=== PATIENT | female | born 1995 | race Caucasian/White ===

== ENCOUNTER 2018-08-02 13:37 | Emergency (ER) | payer OTHER ==
[2018-08-02 13:46] VITALS: BP 131/86; PULSE 82; TEMP 98.3; BMI 25.6
[2018-08-02 14:21] LABS: URINE APPEARANCE Clear; URINE BILIRUBIN Negative (NEGATIVE); URINE COLOR Yellow; URINE GLUCOSE (UA) Negative (NEGATIVE); URINE KETONE Negative (NEGATIVE); URINE LEUK ESTERASE Negative (NEGATIVE); URINE NITRITE Negative (NEGATIVE); URINE PROTEIN Negative (NEGATIVE); URINE UROBILINOGEN 0.2 (0.2-1.0)
[2018-08-02 14:28] LABS: HCG,QUALITATIVE URINE Negative
[2018-08-02] MEDS ORDERED: KETOROLAC TROMETHAMINE 30 MG/1 ML VIAL IM ONE (14:30)
--- NOTE | 2018-08-02 14:46 | PDOC ---
History of Present Illness - General Chief Complaint: Injury Stated Complaint: LEFT SIDE RIB PAIN Past History - Past Medical History Allergies/Adverse Reactions: Allergies Allergy/AdvReac Type Severity Reaction Status Date / Time No Known Allergies Allergy Verified 08/02/18 13:38 Home Medications: Ambulatory Orders Ibuprofen [Motrin -] 600 mg PO TID #90 tablet 08/02/18 COPD: No - Suicide/Smoking/Psychosocial Hx Smoking History: Never smoked Have you smoked in the past 12 months: No Information on smoking cessation initiated: No Hx Alcohol Use: No Drug/Substance Use Hx: No *Physical Exam - Vital Signs Last Vital Signs Temp Pulse Resp BP Pulse Ox 98.3 F 82 20 131/86 100 08/02/18 13:38 08/02/18 13:38 08/02/18 13:38 08/02/18 13:38 08/02/18 13:38 Moderate Sedation - Procedure Monitoring Vital Signs: Procedure Monitoring Vital Signs Temperature 98.3 F 08/02/18 13:38 Pulse Rate 82 08/02/18 13:38 Respiratory Rate 20 08/02/18 13:38 Blood Pressure 131/86 08/02/18 13:38 O2 Sat by Pulse Oximetry (%) 100 08/02/18 13:38 ED Treatment Course - ADDITIONAL ORDERS Additional order review: Laboratory Results 08/02/18 14:15 Urine Color Yellow Urine Appearance Clear Urine pH 7.0 Ur Specific Crum 1.015 Urine Protein Negative Urine Glucose (UA) Negative Urine Ketones Negative Urine Blood Negative Urine Nitrite Negative Urine Bilirubin Negative Urine Urobilinogen 0.2 Ur Leukocyte Esterase Negative Urine HCG, Qual Negative - RADIOLOGY Radiology Studies Ordered: Category Date Time Status CHEST PA & LAT [RAD] Stat Radiology 08/02/18 14:14 Ordered KIDNEY / RENAL US [US] Stat Ultrasound 08/02/18 14:13 Ordered Medical Decision Making - Medical Decision Making 08/02/18 14:44 23 yo F with ho recent viral cold cough nasal congestion seen at urgent care 2 days ago and started on amoxicillin for uvulitis, here with c/o anterior rib and lower flank pain. worse wtih movement, touching and deep breathing and cough. no f/c no urinar complaint.s no h/o pe or dvt. no leg swelling. no travel. on exam pt with left lower anterior rib ttp, left flank ttp. reproducible pain. likley muskuloskeletal. differenetial includes pna, rib fx. pyelo renal colic, uti, no risk factors for PE PERT negative. will obtain cxr us renal ua ucg pain controla nd reassess. likely dc home. 08/02/18 15:31 cxr negative. ua negative for blood. renal us negative. pt with reproducible pain , will dc with msk pain, told to roman motrin every 8 hrs as needed for pain continue amox for uvulitis and return for any problms or concerns *DC/Admit/Observation/Transfer Diagnosis at time of Disposition: Viral URI with cough, Muscle strain of anterior chest wall - Discharge Dispostion Disposition: HOME Decision to Admit order: No - Prescriptions Prescriptions: Ibuprofen [Motrin -] 600 mg PO TID #90 tablet - Referrals - Patient Instructions Printed Discharge Instructions: Common Cold, Muscle Strain Additional Instructions: you can take motrin 600 mg every 8 hrs only as needed for pain. take with food. return for any fever, difficulty breathing or any concerns. drink plenty of fluids, and follow up with your regular doctor Dr Gan. call to schedule to be seen within one week. your urine was negative for infection. your renal ultrasound is normal kidneys no problems. and your chest xray is negative for any infection. - Post Discharge Activity
[2018-08-02] MEDS ORDERED: KETOROLAC TROMETHAMINE 30 MG/1 ML VIAL ONE (14:49)
== END 2018-08-02 15:48 | disposition home or self-care (01) ==
LOC: FER 13:37
PROC: 3E0233Z Introduction of Anti-inflammatory into Muscle, Percutaneous Approach (ICD-10-PCS; principal; 2018-08-02)
DX: J06.9 Acute upper respiratory infection, unspecified (principal); M79.10 Myalgia, unspecified site
CPT/HCPCS: 71046-TC-FY; 76775-TC; 81003; 84703; 96372; 99282-25

== ENCOUNTER 2020-03-23 10:00 | Day surgery (SDC) | payer OTHER ==
[2020-03-22 09:35] VITALS: BMI 29.4
[2020-03-23] MEDS ORDERED: LIDOCAINE HCL/PF 2% SDV 5ML VIAL ONE (10:41)
[2020-03-23] MEDS ORDERED: PROPOFOL 20 ML ONE ×2 (10:41)
[2020-03-23 11:23] VITALS: TEMP 98.2
[2020-03-23 11:49] VITALS: BP 112/58; PULSE 58
--- NOTE | 2020-03-27 16:12 | PATH ---
Surgical Pathology Report Patient Name: JASSON BERRIOS [facility]. Rec. #: [id number] /Age/Gender: 1995 (Age: 24) / F Account: [id number] Location: [facility] Taken: 03/23/2020 Received: 03/23/2020 Reported: 03/27/2020 Physicians: Jimi Pichardo M.D. Specimen(s) Received A: TERMINAL ILEUM B: CECUM C: TRANSVERSE COLON D: RECTUM Clinical History Blood in stool Postoperative diagnosis: Ulcerative colitis Final Diagnosis A. TERMINAL ILEUM, BIOPSY: SMALL INTESTINAL MUCOSA WITH NO SIGNIFICANT PATHOLOGIC CHANGE. B. CECUM, BIOPSY: COLONIC MUCOSA WITH MODERATE ACTIVE CHRONIC INFLAMMATION OF LAMINA PROPRIA, ACUTE CRYPTITIS, REACTIVE LYMPHOID AGGREGATE, AND FOCAL CRYPTAL DISTORTION. SEE COMMENT. C. TRANSVERSE COLON, BIOPSY: COLONIC MUCOSA WITH MODERATE ACTIVE CHRONIC INFLAMMATION OF LAMINA PROPRIA, ACUTE CRYPTITIS, REACTIVE LYMPHOID AGGREGATE, AND FOCAL CRYPTAL DISTORTION. SEE COMMENT. D. RECTUM, BIOPSY: COLONIC MUCOSA WITH MODERATE ACTIVE CHRONIC INFLAMMATION OF LAMINA PROPRIA, ACUTE CRYPTITIS, CRYPT ABSCESS, REACTIVE LYMPHOID AGGREGATE, AND FOCAL CRYPTAL DISTORTION. SEE COMMENT. Comment: There is no dysplasia, granuloma, parasite or viral inclusions in the specimens. The above histologic features are consistent with active chronic crypt destructive colitis pattern. This pattern, while characteristic of chronic idiopathic inflammatory bowel disease, is not specific. This may also be seen in chronic enteric infections, drug reactions, and parasitic infections. Please correlate clinically. Electronically Signed Nely Tyler M.D. Gross Description A. Received in formalin, labeled "biopsy terminal ileum" is a muir, irregular portion of soft tissue measuring 0.5 cm. in greatest dimension. The specimen is submitted in toto in one cassette. B. Received in formalin, labeled "biopsy cecum" is a muir, irregular portion of soft tissue measuring 0.3 cm. in greatest dimension. The specimen is submitted in toto in one cassette. C. Received in formalin, labeled "biopsy transverse colon" is a muir, irregular portion of soft tissue measuring 0.4 cm. in greatest dimension. The specimen is submitted in toto in one cassette. D. Received in formalin, labeled "biopsy rectum" is a muir, irregular portion of soft tissue measuring 0.4 cm. in greatest dimension. The specimen is submitted in toto in one cassette. DL/03/26/2020 [facility]03/26/2020
== END 2020-03-23 11:51 | disposition home or self-care (01) ==
LOC: FASU-ENDO 10:00
PROVIDERS: ATTEND Internal Medicine Gastroenterology
PROC: 0DBL8ZX Excision of Transverse Colon, Via Natural or Artificial Opening Endoscopic, Diagnostic (ICD-10-PCS; 2020-03-23)
PROC: 0DBP8ZX Excision of Rectum, Via Natural or Artificial Opening Endoscopic, Diagnostic (ICD-10-PCS; 2020-03-23)
PROC: 0DBB8ZX Excision of Ileum, Via Natural or Artificial Opening Endoscopic, Diagnostic (ICD-10-PCS; 2020-03-23)
PROC: 0DBH8ZX Excision of Cecum, Via Natural or Artificial Opening Endoscopic, Diagnostic (ICD-10-PCS; principal; 2020-03-23 10:50)
DX: K62.5 Hemorrhage of anus and rectum (principal); K51.00 Ulcerative (chronic) pancolitis without complications; K63.89 Other specified diseases of intestine; R10.9 Unspecified abdominal pain
CPT/HCPCS: 84703; 88305-TC

== ENCOUNTER 2020-04-28 12:38 | Emergency (ER) | payer OTHER ==
--- OUTSIDE RECORDS SUMMARY | 2020-04-28 12:51 | XMS ---
:1995 Author Organization [facility] Support Name Relationship Address Phone UE Unavailable Unavailable Unavailable MISTY BERRIOS MOTHER [address] [place] [address] Re-disclosure Warning The records that you are about to access may contain information from federally- assisted alcohol or drug abuse programs. If such information is present, then the following federally mandated warning applies: This information has been disclosed to you from records protected by federal confidentiality rules (42 CFR part 2). The federal rules prohibit you from making any further disclosure of this information unless further disclosure is expressly permitted by the written consent of the person to whom it pertains or as otherwise permitted by 42 CFR part 2. A general authorization for the release of medical or other information is NOT sufficient for this purpose. The Federal rules restrict any use of the information to criminally investigate or prosecute any alcohol or drug abuse patient.The records that you are about to access may contain highly sensitive health information, the redisclosure of which is protected by Article 27-F of the [facility] Public Health law. If you continue you may haveaccess to information: Regarding HIV / AIDS; Provided by facilities licensed or operated by the [facility] Office of Mental Health; or Provided by the [facility] Office for People With Developmental Disabilities. If such information is present, then the following [facility] mandated warning applies: This information has been disclosed to you from confidential records which are protected by state law. State law prohibits you from making any further disclosure of this information without the specific written consent of the person to whom it pertains, or as otherwise permitted by law. Any unauthorized further disclosure in violation of state law may result in a fine or senior care sentence or both. A general authorization for the release of medical or other information is NOT sufficient authorization for further disclosure. Insurance Providers Payer name Policy type Policy ID Covered Covered constitution party's Policy P boris / Coverage constitution party ID relationship to [employer] Inf ormation type loredo MVP EXCHANGE [id number] SP [id number] PLAN MVP EXCHANGE [id number] SP [id number] PLAN Results ID Date Data Source [id number] 03/20/2020 10:50:00 AM EDT [facility] Name Value Range Interpretation Description Data Sup porting Code Source(s) Document(s ) SARS [facility] coronavirus 2 RNA This lab was ordered by FRANC meyer [facility] and reported by [facility]. Procedure
[2020-04-28 12:55] VITALS: TEMP 99; BMI 29.2
--- NOTE | 2020-04-28 13:06 | PDOC ---
Attending Attestation - Resident Resident Name: Aidan Dalton - ED Attending Attestation I have performed the following: I have examined & evaluated the patient, The case was reviewed & discussed with the resident, I agree w/resident's findings & plan, Exceptions are as noted - HPI HPI: 04/28/20 13:03 24-year-old female recently diagnosis of ulcerative colitis here today complaining of chest pain. Patient has had pleuritic-like substernal chest pain for the last few days denies feeling short of breath no moderating factors except it is worse with deep breathing she does not feel short of breath however no leg swelling no history of PE or DVT does believe that she may have had COVID had some sinus congestion and headaches in October at that time had a negative cold with swab however later had positive antibodies no other complaints chest pain is not positional she was seen yesterday urgent care who recommended doing a chest x-ray which she refused at that time is here today for persistent symptoms - Physicial Exam PE: 04/28/20 13:05 Awake alert no acute distress lungs are clear bilaterally heart is regular 30 murmurs rubs or gallops abdomen is soft and nontender extremities are warm well perfused there is no appreciated calf tenderness or leg edema patient does have some reproducible anterior chest wall tenderness to palpation no step-off no crepitus no ecchymosis noted - Medical Decision Making 04/28/20 13:05 24-year-old female recent diagnosis of ulcerative colitis here today with chest pain does have a questionable history of clubbing with positive antibodies differential includes costochondritis, pericarditis pneumonia or other infection ACS extremely unlikely due to her young age however myocarditis is also considered PE is another factor as the patient does have autoimmune disorder and has a recent history of COVID possibly plan chest x-ray to rule out any infection or pneumothorax EKG labs including a troponin and coags patient will likely require a CT angios to rule out PE Focused bedside echo to rule out pericardial effusion or any change in contractility Heart Score/ECG Review #1 General ECG Interpretation: Sinus Rhythm, Normal Rate, Normal Intervals, No acute ischemic changes Compared to previous ECG there are: Other (TWI III only.) Discharge - Discharge Information Problems reviewed: Yes Clinical Impression/Diagnosis: Chest wall pain Condition: Improved Disposition: HOME - Admission No - Follow up/Referral Referrals: Thor Gan [Primary Care Provider] - - Patient Discharge Instructions Patient Printed Discharge Instructions: DI for Atypical Chest Pain, Costochondritis Additional Instructions: Your evaluated today for chest pain. Your EKG is normal and your labs including a basic blood count electrolytes renal function and heart enzyme are all normal and unremarkable. Your chest x-ray is negative for any acute pathology. We performed a CT chest to rule out any underlying illness or blood clot which was normal or negative. We also performed a bedside echo which showed no effusion around your heart and good contractility are good movement of your heart overall. You likely have inflammation in your chest wall will be called costochondritis. Please follow-up with your primary doctor. For your pain you may take Motrin 400 mg every 8 hours as needed for pain you can also take Tylenol 500 mg every 6 hours as needed follow-up with your primary care doctor call to schedule appointment to be seen within 1 to 2 weeks. For any shortness of breath worsening symptoms or any concerns please return for repeat evaluation - Post Discharge Activity
[2020-04-28 13:30] LABS: HEMOGLOBIN 14.1 GM/dl (10.7-15.3); WHITE BLOOD COUNT 12.4 K/mm3 (4.0-10.8)
[2020-04-28 13:31] LABS: BASO % 1.1 % (0-2.0); EOS % 1.3 % (0-4.5); HEMATOCRIT 41.2 % (32.4-45.2); LYMPH % 5.6 % (8-40); MCH 29.9 pg (25.7-33.7); MCHC 34.1 g/dl (32.0-36.0); MEAN CELL VOLUME 87.7 fl (80-96); MEAN PLT VOLUME 7.8 fl (7.5-11.1); MONO % 7.3 % (3.8-10.2); NEUT % 84.7 % (42.8-82.8); PLATELET COUNT 375 K/MM3 (134-434); RDW 12.3 % (11.6-15.6)
--- NOTE | 2020-04-28 13:38 | PDOC ---
History of Present Illness - General Chief Complaint: Chest Pain Stated Complaint: CHEST PAIN Time Seen by Provider: 04/28/20 12:40 - History of Present Illness Initial Comments: 24-year-old female recently diagnosis of ulcerative colitis here today complaining of chest pain. Patient has had pleuritic-like substernal chest pain for the last few days . She denied SOB, leg swelling, no prior hx of PE, or DVT. Patient has tested negative for COVID but had some mild sinusitis , but she admitted to have positive antibody. Patient went [place] urgent care in the city. There they wanted her to do Xray , but she refused. She had an EKG done showed sinus rhythm. PMHX: as in HPI PSHX: see below Meds: mesalamine. Allergies: none Tob:none Etoh: none Rec drugs:none PCP: [facility]: [facility] GENERAL/CONSTITUTIONAL: No fever or chills. No weakness. HEAD, EYES, EARS, NOSE AND THROAT: No change in vision. No ear pain or discharge . No sore throat. CARDIOVASCULAR: No chest pain or shortness of breath RESPIRATORY: No cough, wheezing, or hemoptysis. GASTROINTESTINAL: No nausea, vomiting, diarrhea or constipation. GENITOURINARY: No dysuria, frequency, or change in urination. MUSCULOSKELETAL: No joint or muscle swelling or pain. No neck or back pain. SKIN: No rash NEUROLOGIC: No headache, vertigo, loss of consciousness, or change in strength/sensation. ENDOCRINE: No increased thirst. No abnormal weight change HEMATOLOGIC/LYMPHATIC: No anemia, easy bleeding, or history of blood clots. ALLERGIC/IMMUNOLOGIC: No hives or skin allergy. PE GENERAL: Awake, alert, and fully oriented, in no acute distress HEAD: No signs of trauma, normocephalic, atraumatic EYES: PERRLA, EOMI, sclera anicteric, conjunctiva clear ENT: Auricles normal inspection, hearing grossly normal, nares patent, oropharynx clear without exudates. Moist mucosa NECK: Normal ROM, supple, no lymphadenopathy, JVD, or masses LUNGS: No distress, speaks full sentences, clear to auscultation bilaterally HEART: Regular rate and rhythm, normal S1 and S2, no murmurs, rubs or gallops, peripheral pulses normal and equal bilaterally. ABDOMEN: Soft, nontender, normoactive bowel sounds. No guarding, no rebound. No masses EXTREMITIES : Normal inspection, Normal range of motion, no edema. No clubbing or cyanosis. reproducible tenderness upon palpation on the costosternum area. NEUROLOGICAL: Cranial nerves II through XII grossly intact. Normal speech, norm al gait, no focal sensorimotor deficits SKIN: Warm, Dry, normal turgor, no rashes or lesions noted 04/28/20 16:13 Past History - Medical History Allergies/Adverse Reactions: Allergies Allergy/AdvReac Type Severity Reaction Status Date / Time No Known Allergies Allergy Verified 05/11/20 17:16 Home Medications: Ambulatory Orders Mesalamine [Asacol Hd -] 0 mg PO DAILY 04/28/20 Anemia: No Asthma: No Cancer: No Cardiac Disorders: No CVA: No COPD: No CHF: No Dementia: No Diabetes: No GI Disorders: Yes (ulcerative colitis) Disorders: No HTN: No Hypercholesterolemia: No Liver Disease: No Seizures: No Thyroid Disease: No - Surgical History Abdominal Surgery: No Appendectomy: No Cardiac Surgery: No Cholecystectomy: No Lung Surgery: No Neurologic Surgery: No Orthopedic Surgery: No - Reproductive History Is Patient Now?: No - Psycho-Social/Smoking History Smoking History: Current some day smoker Have you smoked in the past 12 months: Yes Number of Cigarettes Smoked Daily: 0 Information on smoking cessation initiated: Yes - Substance Abuse Hx (Audit-C & DAST Scrn) How often the patient has a drink containing alcohol: Monthly or less Score: In Men: 4 or > Positive; In Women: 3 or > Positive: 1 Screen Result (Pos requires Nsg. Audit-10AR): Negative In the last yr the pt used illegal drug/Rx for NonMed reason: No Score: Yes response is considered Positive: 0 Screen Result (Positive result requires Nsg. DAST-10): Negative *Physical Exam - Vital Signs Last Vital Signs Temp Pulse Resp BP Pulse Ox 99 F 94 H 18 136/93 99 04/28/20 12:38 04/28/20 12:38 04/28/20 12:38 04/28/20 12:38 04/28/20 12:38 ED Treatment Course - LABORATORY CBC & Chemistry Diagram: 04/28/20 13:00 04/28/20 13:00 Medical Decision Making - Medical Decision Making 04/28/20 16:14 24 F with UC presented to the ED with 2 days of worsening pleuretic chest pain. dx: ACS, PE, pericarditis, costochonritis. Plan to obtain: lab work, chest xray, CTA r/o PE, POCUS cardio, test. Med: tylenol, [place]. Result: test is Negative. Imaging: negative for pleural effusion, PE D/c with OTC pain control, most likely costochondritis. Discharge - Discharge Information Problems reviewed: Yes Clinical Impression/Diagnosis: Chest wall pain Condition: Improved Disposition: HOME - Follow up/Referral Referrals: Thor Gan [Primary Care Provider] - - Patient Discharge Instructions Patient Printed Discharge Instructions: Costochondritis, DI for Atypical Chest Pain Additional Instructions: Your evaluated today for chest pain. Your EKG is normal and your labs including a basic blood count electrolytes renal function and heart enzyme are all normal and unremarkable. Your chest x-ray is negative for any acute pathology. We performed a CT chest to rule out any underlying illness or blood clot which was normal or negative. We also performed a bedside echo which showed no effusion around your heart and good contractility are good movement of your heart overall. You likely have inflammation in your chest wall will be called costochondritis. Please follow-up with your primary doctor. For your pain you may take Motrin 400 mg every 8 hours as needed for pain you can also take Tylenol 500 mg every 6 hours as needed follow-up with your primary care doctor call to schedule appointment to be seen within 1 to 2 weeks. For any shortness of breath worsening symptoms or any concerns please return for repeat evaluation - Post Discharge Activity
[2020-04-28] MEDS ORDERED: KETOROLAC TROMETHAMINE 30 MG/1 ML VIAL IVPUSH ONE (13:40)
[2020-04-28 13:41] LABS: ALBUMIN 3.9 g/dl (3.4-5.0); BILIRUBIN,TOTAL 0.5 mg/dl (0.2-1); CALCIUM 8.9 mg/dl (8.5-10); CREATININE 0.8 mg/dl (0.55-1.3); POTASSIUM 3.8 mmol/L (3.5-5.1); TOT PROT 7.1 g/dl (6.4-8.2)
[2020-04-28] MEDS ORDERED: KETOROLAC TROMETHAMINE 30 MG/1 ML VIAL ONE (13:41)
[2020-04-28 13:43] LABS: ACTIVATED PTT 23.7 SECONDS (25.2-36.5); INR 1.18 (0.82-1.09); PROTHROMBIN TIME (PATIENT) 13.2 SEC (10.2-13.0)
[2020-04-28 14:37] VITALS: BP 114/74; PULSE 72
--- NOTE | 2020-04-28 16:13 | EKG ---
Test Reason : Blood Pressure : / mmHG Vent. Rate : 091 BPM Atrial Rate : 091 BPM P-R Int : 140 ms QRS Dur : 068 ms QT Int : 368 ms P-R-T Axes : -10 069 030 degrees QTc Int : 452 ms NORMAL SINUS RHYTHM NORMAL ECG NO PREVIOUS ECGS AVAILABLE Confirmed by MD Antwan, Adal ([id number]) on 04/28/2020 4:13:25 PM Referred By: CLAUDIO POP Confirmed By:Adal Moncada MD
== END 2020-04-28 14:50 | disposition home or self-care (01) ==
LOC: FER 12:38
PROC: 3E0333Z Introduction of Anti-inflammatory into Peripheral Vein, Percutaneous Approach (ICD-10-PCS; principal; 2020-04-28)
DX: R07.89 Other chest pain (principal)
CPT/HCPCS: 36415; 71046-TC-FY; 71275-TC; 80053; 84484; 84703; 85025; 85610; 85730; 93005; 93308; 99285-25; Q9967

== ENCOUNTER 2020-05-11 15:49 | Emergency (ER) | payer OTHER ==
--- OUTSIDE RECORDS SUMMARY | 2020-05-11 16:00 | XMS ---
:1995 Author Organization [facility] Support Name Relationship Address Phone UE Unavailable Unavailable Unavailable MISTY BERRIOS MOTHER [address] [place] [address] MISTY BERRIOS [address] [place] [place] [address] Re-disclosure Warning The records that you are [...] is protected by Article 27-F of the [facility] Public Health law. If you continue you may haveaccess to information: Regarding HIV / AIDS; Provided by facilities licensed or operated by the [facility] Office of Mental Health; or Provided by the [facility] Office for People With Developmental Disabilities. If such information is present, then the following [facility] mandated warning applies: This information has been [...] law may result in a fine or usp sentence or both. A general authorization for the release of medical or other information is NOT sufficient authorization for further disclosure. Insurance Providers Payer name Policy type Policy ID Covered Covered green party's Policy P boris / Coverage green party ID relationship to [employer] Inf ormation type loredo MVP EXCHANGE [id number] SP [id number] PLAN MVP EXCHANGE [id number] SP [id number] PLAN Results ID Date Data Source [id number] 04/27/2020 05:34:00 PM EDT [facility] Name Value Range Interpretation Code Description Data Leah rce(s) Supporting Document(s ) SARS-COV-2 [facility] QL JONEL+PROBE This lab was ordered by CAITY DEMARCO and reported by [facility]. ID Date Data Source [id number] 03/20/2020 10:50:00 AM EDT [facility] Name Value Range Interpretation Description Data Sup porting Code Source(s) Document(s ) SARS [facility] coronavirus 2 RNA This lab was ordered by FRANC MITCHELL and reported by [facility]. Procedure
--- NOTE | 2020-05-11 16:02 | PDOC ---
History of Present Illness - General Chief Complaint: Pain, Acute Stated Complaint: CHEST PAIN [id number] Time Seen by Provider: 05/11/20 16:00 History Source: Patient Exam Limitations: No Limitations - History of Present Illness Initial Comments: 05/11/20 16:00 24YOF with ulcerative colitis on mesalamine who p/w continued unchanged upper chest pain for the past 2-3 weeks, same as when she was seen here in the ED in April, at which time she was given Toradol IV push with great relief and also had chest CTA PE protocol which was negative. She notes the pain improved somewhat the first week after going home from the ED but over the past week it worsened again. She notes having taken Tylenol and Motrin as directed in her discharge instructions from last visit. Denies any chance of being . States the pain radiates to her neck on both sides and has a slight headache, cough, subjective fever, and swollen lymph nodes. Denies any measured fever, denies c/n/v/d/c, abdominal pain, dysuria, or hematuria, or new numbness, tingling, paralysis or weakness, etc. Past History - Medical History Allergies/Adverse Reactions: Allergies Allergy/AdvReac Type Severity Reaction Status Date / Time No Known Allergies Allergy Verified 05/11/20 17:16 Home Medications: Ambulatory Orders Mesalamine [Asacol Hd -] 0 mg PO DAILY 04/28/20 Anemia: No Asthma: No Cancer: No Cardiac Disorders: No CVA: No COPD: No CHF: No Dementia: No Diabetes: No GI Disorders: Yes (ulcerative colitis) Disorders: No HTN: No Hypercholesterolemia: No Liver Disease: No Seizures: No Thyroid Disease: No - Surgical History Abdominal Surgery: No Appendectomy: No Cardiac Surgery: No Cholecystectomy: No Lung Surgery: No Neurologic Surgery: No Orthopedic Surgery: No - Psycho-Social/Smoking History Smoking History: Current some day smoker Have you smoked in the past 12 months: Yes Number of Cigarettes Smoked Daily: 0 'Breaking Loose' booklet given: 04/28/20 Review of Systems - Review of Systems Able to Perform ROS?: Yes Comments:: 05/11/20 17:19 GEN: +subjective fever, malaise, no chills, or generalized weakness HEENT: no ear pain, eye pain, throat pain or swelling, nosebleed, vision change, or loose teeth SKIN: no cuts, abrasions, or bruises CV: +chest pain, no palpitations, or LOC RESP: no SOB, but pain worsens with deep breathing, +cough GI: no abdominal pain, nausea, vomiting, or black/bloody stool : no hematuria or flank pain/bruising MSK: no muscle weakness, muscle pain, joint pain, or joint swelling NECK/BACK: neck ache, no back pain, or trauma reported NEURO: headache, no seizure, numbness, tingling, focal weakness, or incontinence PSYCH: no suicidality, homicidality, or substance use *Physical Exam - Vital Signs Initial Vital Signs Temp Pulse Resp BP Pulse Ox 100.1 F H 122 H 20 98/55 L 100 05/11/20 15:49 05/11/20 15:49 05/11/20 15:49 05/11/20 15:49 05/11/20 15:49 - Physical Exam 05/11/20 17:00 GENERAL: well-appearing, A/Ox4, no distress, but a bit tearful after conversing for a few minutes, answers questions appropriately HEENT: PERRLA, EOMI, moist mucous membranes NECK/BACK: no midline ttp, no spinal step-off or deformity, no hematoma, full ROM, neck supple CARDIOVASCULAR: regular rate/rhythm, no MGR, strong peripheral pulses, capillary refill <2 seconds, extremities wwp, no edema CHEST WALL: no tenderness to compression LUNGS/RESPIRATORY: no respiratory distress, CTAB GI/ABDOMEN: symmetric [id number], normoactive BS, soft, no ttp, no midline pulsatile masses : no CVA tenderness MSK/EXTREMITIES: no muscle atrophy, no acute deformity SKIN: warm and dry, no pallor, no jaundice, no rash, no pathologic-appearing bruising, no skin breakdown, no cuts, no lesions NEUROLOGICAL: GCS 15, CN II-XII grossly intact, 5/5 strength proximally and distally, no facial droop, BUE sensory and motor intact and equal throughout Heart Score/ECG Review - History History: Slightly suspicious - Electrocardiogram EKG: Normal - Age Age: </= 45 - Risk Factors Based on the list above the patient has:: No risk factors known - Troponin Troponin: 1-3x normal limit - Score Heart Score - Total: 1 ED Treatment Course - LABORATORY CBC & Chemistry Diagram: 05/11/20 17:00 05/11/20 17:00 Medical Decision Making - Critical Care Time Total Critical Care Time (minutes): 35 Critical Care Statement: The care of this patient involved high complexity decision making to prevent further life threatening deterioration of the patient's condition and/or to evaluate & treat vital organ system(s) failure or risk of failure. - Medical Decision Making 05/11/20 17:00 24YOF p/w chest pain, ongoing for 2-3 weeks, unchanged. Initial Vital Signs Temp Pulse Resp BP Pulse Ox 100.1 F H 122 H 20 98/55 L 100 05/11/20 15:49 05/11/20 15:49 05/11/20 15:49 05/11/20 15:49 05/11/20 15:49 DDX IBNLT: possible pericarditis, less likely myocarditis without significant hypotension or h/o HF. Less likely but possible ACS. Unlikely PTX, PE, or PE given her recent negative CT PE protocol. Less likely any abdominal pathology as the patient has no tenderness or pain in the abdomen, no dysuria, hematuria, discharge, etc. Possible viral syndrome. Provider Orders Category Date Time Status ELECTROCARDIOGRAM [CARD] Stat Cardiology 05/11/20 16:02 Ordered EKG needed NOW Care 05/11/20 16:02 Completed Isolation Precautions As directed Care 05/11/20 17:50 Ordered CARDIAC PROFILE (ONLY [facility]) Stat Lab 05/11/20 17:00 Completed CBC WITH DIFFERENTIAL Stat Lab 05/11/20 17:00 Results COMP METABOLIC PANEL Stat Lab 05/11/20 17:00 Completed COVID-19 Stat Lab 05/11/20 17:50 Uncollected MAGNESIUM Stat Lab 05/11/20 17:00 Completed UA ([facility] ONLY) Stat Lab 05/11/20 17:23 Results URINE MICROSCOPIC (FRANC) Stat Lab 05/11/20 17:23 Results Urine [HCG,QUALITATIVE URINE] Stat Lab 05/11/20 17:23 Completed Ketorolac Injection [Toradol Injection -] Medication 05/11/20 17:39 Discontinued 30 mg .ROUTE .STK-MED ONE Ketorolac Injection [Toradol Injection -] Medication 05/11/20 17:13 Discontinued 30 mg IVPUSH ONCE ONE URINE CULTURE Stat Micro 05/11/20 17:23 Received CXRPORT [CHEST X-RAY PORTABLE*] [RAD] Stat Radiology 05/11/20 16:00 Completed Medications Discontinued Medications Generic Name Dose Route Start Last Admin Trade Name Kaitlin PRN Reason Stop Dose Admin Ketorolac Tromethamine 30 mg 05/11/20 17:13 05/11/20 17:49 Toradol Injection - IVPUSH 05/11/20 17:14 30 mg ONCE ONE Administration Ketorolac Tromethamine Confirm 05/11/20 17:39 Toradol Injection - Administered 05/11/20 17:40 Dose 30 mg .ROUTE .STK-MED ONE Lab Results WBC 9.0 K/mm3 (4.0-10.8) 05/11/20 17:00 RBC 4.49 M/mm3 (3.60-5.2) 05/11/20 17:00 Hgb 13.1 GM/dl (10.7-15.3) 05/11/20 17:00 Hct 38.8 % (32.4-45.2) 05/11/20 17:00 MCV 86.5 fl (80-96) 05/11/20 17:00 MCH 29.1 pg (25.7-33.7) 05/11/20 17:00 MCHC 33.7 g/dl (32.0-36.0) 05/11/20 17:00 RDW 12.2 % (11.6-15.6) 05/11/20 17:00 Plt Count 362 K/MM3 (134-434) 05/11/20 17:00 MPV 7.7 fl (7.5-11.1) 05/11/20 17:00 Absolute Neuts (auto) 8.3 K/mm3 05/11/20 17:00 Neutrophils % No Result Required. 05/11/20 17:00 Lymphocytes % No Result Required. 05/11/20 17:00 Sodium 135 mmol/L (136-145) L 05/11/20 17:00 Potassium 3.8 mmol/L (3.5-5.1) 05/11/20 17:00 Chloride 104 mmol/L (98-107) 05/11/20 17:00 Carbon Dioxide 21 mmol/L (21-32) 05/11/20 17:00 Anion Gap 10 MMOL/L (8-16) 05/11/20 17:00 BUN 9.0 mg/dl (7-18) 05/11/20 17:00 Creatinine 0.8 mg/dl (0.55-1.3) 05/11/20 17:00 Est GFR (CKD-EPI)AfAm 121.29 05/11/20 17:00 Est GFR (CKD-EPI)NonAf 104.65 05/11/20 17:00 Random Glucose 100 mg/dl (74-106) 05/11/20 17:00 Calcium 8.6 mg/dl (8.5-10) 05/11/20 17:00 Magnesium 1.6 mg/dL (1.8-2.4) L 05/11/20 17:00 Total Bilirubin 0.8 mg/dl (0.2-1) 05/11/20 17:00 AST 15 U/L (15-37) 05/11/20 17:00 ALT 15 U/L (13-61) 05/11/20 17:00 Alkaline Phosphatase 66 U/L (45-117) 05/11/20 17:00 Creatine Kinase 48 U/L (26-192) 05/11/20 17:00 Troponin I 0.09 ng/ml (0.00-0.05) H 05/11/20 17:00 Total Protein 6.8 g/dl (6.4-8.2) 05/11/20 17:00 Albumin 3.2 g/dl (3.4-5.0) L 05/11/20 17:00 Urine Color Yellow 05/11/20 17:23 Urine Appearance Slightly 05/11/20 17:23 Urine pH 6.0 (4.5-8) 05/11/20 17:23 Urine Protein 2+ (NEGATIVE) H 05/11/20 17:23 Urine Glucose (UA) Negative (NEGATIVE) 05/11/20 17: Urine Ketones 3+ (NEGATIVE) H 05/11/20 17:23 Urine Blood Trace-intact (NEGATIVE) 05/11/20 17: Urine Nitrite Negative (NEGATIVE) 05/11/20 17:23 Urine Bilirubin 1+ (NEGATIVE) H 05/11/20 17:23 Urine Urobilinogen 0.2 (0.2-1.0) 05/11/20 17:23 Ur Leukocyte Esterase 1+ (NEGATIVE) 05/11/20 17:23 Urine HCG, Qual Negative 05/11/20 17:23 CXR: nothing acute 05/11/20 17:56 Dr. Peacock is reading in Radiology at this time and he is kind enough to look over the patient's prior chest CTA imaging with me. States in arterial phase imaging, the spleen can have a heterogenous appearance. Much appreciated. Patient getting liter bolus IVF per her request, also getting Ofirmev. 05/11/20 18:18 POCUS without pericardial effusion, no significant atrial dilatation, normal ventricular size ratio, normal contractility, hyperdynamic. Still pending UA- micro results. 05/11/20 19:29 I have spoken with Dr. Martino; he will see the patient in consult while inpatient. I spoke with ICU, Dr. Mcmanus, [facility] On informing the patient and mother, they request transfer to [facility]. They state they have a friend on the [facility] board who is looking for an accepting physician to talk with. The family is awaiting call back from their friend on the [facility] board with physician name to contact for admission. Patient's care is endorsed to Dr. Child awaiting transfer to [facility]. Discharge - Discharge Information Problems reviewed: Yes Clinical Impression/Diagnosis: Elevated troponin Chest pain Qualifiers: Chest pain type: unspecified Qualified Code(s): R07.9 - Chest pain, unspecified Fever Qualifiers: Fever type: unspecified Qualified Code(s): R50.9 - Fever, unspecified Condition: Guarded Disposition: TRANSFER ACUTE CARE/OTHER HOSP - Admission Yes - Follow up/Referral - Patient Discharge Instructions - Post Discharge Activity
[2020-05-11] MEDS ORDERED: KETOROLAC TROMETHAMINE 30 MG/1 ML VIAL IVPUSH ONE (17:13)
[2020-05-11 17:16] LABS: HEMATOCRIT 38.8 % (32.4-45.2); HEMOGLOBIN 13.1 GM/dl (10.7-15.3); MCH 29.1 pg (25.7-33.7); MCHC 33.7 g/dl (32.0-36.0); MEAN CELL VOLUME 86.5 fl (80-96); MEAN PLT VOLUME 7.7 fl (7.5-11.1); PLATELET COUNT 362 K/MM3 (134-434); RBC 4.49 M/mm3 (3.60-5.2); RDW 12.2 % (11.6-15.6)
[2020-05-11 17:21] VITALS: BMI 29.2
--- NOTE | 2020-05-11 17:24 | PDOC ---
History of Present Illness - General Chief Complaint: Pain, Acute Stated Complaint: CHEST PAIN [id number] Time Seen by Provider: 05/11/20 16:00 Past History - Medical History Allergies/Adverse Reactions: Allergies Allergy/AdvReac Type Severity Reaction Status Date / Time No Known Allergies Allergy Verified 05/11/20 17:16 Home Medications: Ambulatory Orders Mesalamine [Asacol Hd -] 0 mg PO DAILY 04/28/20 Anemia: No Asthma: No Cancer: No Cardiac Disorders: No CVA: No COPD: No CHF: No Dementia: No Diabetes: No GI Disorders: Yes (ulcerative colitis) Disorders: No HTN: No Hypercholesterolemia: No Liver Disease: No Seizures: No Thyroid Disease: No - Surgical History Abdominal Surgery: No Appendectomy: No Cardiac Surgery: No Cholecystectomy: No Lung Surgery: No Neurologic Surgery: No Orthopedic Surgery: No - Reproductive History Is Patient Now?: No (UNKNOWN) - Psycho-Social/Smoking History Smoking History: Current some day smoker Have you smoked in the past 12 months: Yes Number of Cigarettes Smoked Daily: 0 If you are a former smoker, when did you quit?: 2 WEEKS Information on smoking cessation initiated: No 'Breaking Loose' booklet given: 04/28/20 - Substance Abuse Hx (Audit-C & DAST Scrn) How often the patient has a drink containing alcohol: Monthly or less Number of drinks the patient has on a typical day: 1 or 2 How often the patient has six or more drinks on one occasion: Never Score: In Men: 4 or > Positive; In Women: 3 or > Positive: 1 Screen Result (Pos requires Nsg. Audit-10AR): Negative In the last yr the pt used illegal drug/Rx for NonMed reason: No Score: Yes response is considered Positive: 0 Screen Result (Positive result requires Nsg. DAST-10): Negative *Physical Exam - Vital Signs Last Vital Signs Temp Pulse Resp BP Pulse Ox 100.1 F H 122 H 20 98/55 L 100 05/11/20 15:49 05/11/20 15:49 05/11/20 15:49 05/11/20 15:49 05/11/20 15:49 ED Treatment Course - LABORATORY CBC & Chemistry Diagram: 05/11/20 17:00 - ADDITIONAL ORDERS Additional order review: 05/11/20 17:00 RBC 4.49 MCV 86.5 MCHC 33.7 RDW 12.2 MPV 7.7 Neutrophils % No Result Required. Lymphocytes % No Result Required. Discharge - Discharge Information Condition: Stable - Follow up/Referral - Patient Discharge Instructions - Post Discharge Activity
[2020-05-11 17:32] LABS: ALBUMIN 3.2 g/dl (3.4-5.0); BILIRUBIN,TOTAL 0.8 mg/dl (0.2-1); CALCIUM 8.6 mg/dl (8.5-10); CREATININE 0.8 mg/dl (0.55-1.3); MAGNESIUM 1.6 mg/dL (1.8-2.4); POTASSIUM 3.8 mmol/L (3.5-5.1); TOT PROT 6.8 g/dl (6.4-8.2)
[2020-05-11] MEDS ORDERED: KETOROLAC TROMETHAMINE 30 MG/1 ML VIAL ONE (17:39)
[2020-05-11] MEDS ORDERED: ACETAMINOPHEN INJECTION 100 ML IVPB ONE (17:58)
[2020-05-11] MEDS ORDERED: SODIUM CHLORIDE 0.9% 500 ML INFUS.BAG IV ONE ×2 (18:06→19:11)
[2020-05-11] MEDS ORDERED: ACETAMINOPHEN 1000 MG/100 ML VIAL (NON FORMULARY) IVPB ONE (18:06)
[2020-05-11 18:32] LABS: PLATELET ESTIMATE ADEQUATE
[2020-05-11 18:32] LABS: EPITHELIAL CELLS FEW /hpf
[2020-05-11] MEDS ORDERED: HYDROmorphone HCL CARPU-JECT 1 MG/1 ML DISP.SYRIN IVPUSH ONE (19:49)
[2020-05-11] MEDS ORDERED: CEFTRIAXONE 1,000 MG in DEXTROSE 5%-WATER - 50 ML IVPB ONE (19:51)
[2020-05-11] MEDS ORDERED: HYDROmorphone HCL CARPU-JECT 1 MG/1 ML DISP.SYRIN ONE (19:51)
--- NOTE | 2020-05-11 19:53 | PDOC ---
*Physical Exam - Vital Signs Last Vital Signs Temp Pulse Resp BP Pulse Ox 99.2 F 126 H 16 93/53 L 100 05/11/20 18:00 05/11/20 19:07 05/11/20 19:07 05/11/20 19:07 05/11/20 19:07 ED Treatment Course - LABORATORY CBC & Chemistry Diagram: 05/11/20 17:00 05/11/20 17:00 - ADDITIONAL ORDERS Additional order review: Laboratory Results 05/11/20 05/11/20 05/11/20 17:23 17:23 17:00 Sodium Potassium Chloride Carbon Dioxide Anion Gap BUN Creatinine Est GFR (CKD-EPI)AfAm Est GFR (CKD-EPI)NonAf Random Glucose Calcium Magnesium Total Bilirubin AST ALT Alkaline Phosphatase Creatine Kinase Troponin I 0.09 H Total Protein Albumin Urine Color Yellow Urine Appearance Slightly Urine pH 6.0 Urine Protein 2+ H Urine Glucose (UA) Negative Urine Ketones 3+ H Urine Blood Trace-intact Urine Nitrite Negative Urine Bilirubin 1+ H Urine Urobilinogen 0.2 Ur Leukocyte Esterase 1+ Urine RBC 2-5 Urine WBC >100 Ur Transition Epith Cell Few Urine Bacteria Many Urine HCG, Qual Negative 05/11/20 17:00 Sodium 135 L Potassium 3.8 Chloride 104 Carbon Dioxide 21 Anion Gap 10 BUN 9.0 Creatinine 0.8 Est GFR (CKD-EPI)AfAm 121.29 Est GFR (CKD-EPI)NonAf 104.65 Random Glucose 100 Calcium 8.6 Magnesium 1.6 L Total Bilirubin 0.8 AST 15 ALT 15 Alkaline Phosphatase 66 Creatine Kinase 48 Troponin I Total Protein 6.8 Albumin 3.2 L Urine Color Urine Appearance Urine pH Urine Protein Urine Glucose (UA) Urine Ketones Urine Blood Urine Nitrite Urine Bilirubin Urine Urobilinogen Ur Leukocyte Esterase Urine RBC Urine WBC Ur Transition Epith Cell Urine Bacteria Urine HCG, Qual 05/11/20 17:00 RBC 4.49 MCV 86.5 MCHC 33.7 RDW 12.2 MPV 7.7 Neutrophils % No Result Required. Lymphocytes % No Result Required. - Medications Given in the ED: ED Medications Discontinued Medications Generic Name Dose Route Start Last Admin Trade Name Freq PRN Reason Stop Dose Admin Acetaminophen 1,000 mg 05/11/20 18:06 05/11/20 18:15 Ofirmev Injection - IVPB 05/11/20 18:07 1,000 mg ONCE ONE Administration Ketorolac Tromethamine 30 mg 05/11/20 17:13 05/11/20 17:49 Toradol Injection - IVPUSH 05/11/20 17:14 30 mg ONCE ONE Administration Sodium Chloride 1,000 ml 05/11/20 18:06 05/11/20 18:14 Normal Saline - IV 05/11/20 18:07 1,000 ml ONCE ONE Administration Sodium Chloride 1,000 ml 05/11/20 19:11 05/11/20 19:11 Normal Saline - IV 05/11/20 19:12 1,000 ml ONCE ONE Administration ED Progress Note - Progress Note Progress Note: 05/11/20 19:52 Patient was admitted to the ICU prior to my coming on at 7 PM however patient family wanted her transferred to [facility] so shortly after I came on duty a Dr. Hahn cardiology from [facility] called me and accepted the patient. Patient is going to bed [address]. [facility] is rearranging transportation Discharge - Discharge Information Problems reviewed: Yes Clinical Impression/Diagnosis: Elevated troponin Chest pain Qualifiers: Chest pain type: unspecified Qualified Code(s): R07.9 - Chest pain, unspecified Fever Qualifiers: Fever type: unspecified Qualified Code(s): R50.9 - Fever, unspecified Condition: Guarded Disposition: TRANSFER ACUTE CARE/OTHER HOSP - Follow up/Referral - Patient Discharge Instructions - Post Discharge Activity
[2020-05-11] MEDS ORDERED: cefTRIAXone SODIUM 1 GM VIAL ONE (20:05)
[2020-05-11 20:14] VITALS: BP 94/55; PULSE 120; TEMP 100
== END 2020-05-11 20:47 | disposition short-term general hospital (02) ==
LOC: FER 15:49
PROC: 3E03329 Introduction of Other Anti-infective into Peripheral Vein, Percutaneous Approach (ICD-10-PCS; principal; 2020-05-11)
PROC: 3E033GC Introduction of Other Therapeutic Substance into Peripheral Vein, Percutaneous Approach (ICD-10-PCS; 2020-05-11)
PROC: 3E0337Z Introduction of Electrolytic and Water Balance Substance into Peripheral Vein, Percutaneous Approach (ICD-10-PCS; 2020-05-11)
DX: R07.9 Chest pain, unspecified (principal); R50.9 Fever, unspecified
CPT/HCPCS: 36415; 71045-TC-FY; 80053; 81003; 81015; 82550; 83735; 83880; 84484; 84703; 85025; 87086; 99291; C9803; J0131; U0003

== ENCOUNTER 2020-09-14 10:21 | Day surgery (SDC) | payer OTHER ==
[2020-09-13 09:15] VITALS: BMI 29.2
[2020-09-14] MEDS ORDERED: PROPOFOL 20 ML ONE ×2 (11:03)
[2020-09-14 11:50] VITALS: PULSE 80; TEMP 98.4
[2020-09-14 12:04] VITALS: BP 96/66
== END 2020-09-14 12:13 | disposition home or self-care (01) ==
LOC: FASU-ENDO 10:21
PROVIDERS: ATTEND Internal Medicine Gastroenterology
PROC: 0DBP8ZX Excision of Rectum, Via Natural or Artificial Opening Endoscopic, Diagnostic (ICD-10-PCS; 2020-09-14)
PROC: 0DBE8ZX Excision of Large Intestine, Via Natural or Artificial Opening Endoscopic, Diagnostic (ICD-10-PCS; principal; 2020-09-14 11:15)
DX: K52.89 Other specified noninfective gastroenteritis and colitis (principal)
CPT/HCPCS: 81025; 88305-TC